=== PATIENT | female | born 1985 | race Asian ===

== ENCOUNTER 2022-04-14 13:31 | Outpatient (CLI) | payer OTHER ==
--- NOTE | 2022-04-14 15:54 | MRI Report ---
PROCEDURE: LUMBAR SPINE WO INDICATIONS: LOW BACK PAIN TECHNIQUE: Noncontrast sagittal T1 spin echo and T2 fast echo, sagittal STIR, axial T1 and T2 fast spin echo thr ough the lumbar spine. In cases with scoliosis, additional coronal T2 fast spin echo may be performe d. COMPARISON: None. FINDINGS: Image quality: Motion degraded Alignment: No spondylolisthesis. Overall straightening of normal lumbar lordosis. Marrow: No acute fracture. Possible hemangioma at the superior endplate of L4. Mild multilevel disc d esiccation. Cord: Normal appearance of cauda equina nerve roots. Cord terminates in normal position. Soft tissues: No hematoma or abscess identified. Suspected small renal cysts are present. No abdomina l aortic aneurysm in the [id number]. Of note, there is some edema between the spinous processes of L4 and L5. Specific levels: T12-L1: No stenosis. L1-L2: No stenosis. L2-L3: No stenosis. L3-L4: Small diffuse disc bulge and mild facet arthropathy. No stenosis. L4-L5: Small diffuse disc bulge and mild facet arthropathy. No stenosis. L5-S1: Small diffuse disc bulge and mild facet arthropathy. No stenosis. IMPRESSION: Mild lower lumbar spondylosis without critical stenosis. No acute fracture identified. T here is overall straightening of normal lumbar lordosis. Intrinsically T1 hyperintense lesion at the superior endplate L4 could represent hemangioma. 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 Reviewed by: Gregg Carranza MD on 04/14/2022 3:53 PM PST Approved by: Gregg Carranza MD on 04/14/2022 3:53 PM PST Station ID: [id number]
== END 2022-04-14 13:32 | disposition home or self-care (01) ==
LOC: DI 13:31
PROVIDERS: ATTEND Physician Assistant
DX: M47.816 Spondylosis without myelopathy or radiculopathy, lumbar region (principal); M47.817 Spondylosis without myelopathy or radiculopathy, lumbosacral region; M51.36 Other intervertebral disc degeneration, lumbar region; M51.37 Other intervertebral disc degeneration, lumbosacral region